=== PATIENT | female | born 1960 | race Caucasian/White ===

== ENCOUNTER → 2016-08-19 | Outpatient (CLI) | payer OTHER ==
--- NOTE | 2016-08-19 11:07 | MA ---
Screening Digital Mammogram With Tomosynthesis Clinical Indications: Routine screening. Technique: Standard digital cephalocaudal and tomosynthesis mediolateral oblique projections were ob tained. The digital images were processed by the [employer] computer aided detection system. Comparison: June 2015, June 2014, June 2013 and May 2012. Breast density: D; The breast tissue is extremely dense. There is diffuse prominent ductal pattern. T his may lower the sensitivity of mammography. Findings: CAD was reviewed. No suspicious findings are identified. Impression: Negative mammogram. BI-RADS 1. Recommendation: Routine screening is recommended in one year, as long as physical examination is chapis ign in this patient with moderately dense breast parenchyma. Considering the patient's extremely dens e breast parenchyma, she might consider using screening whole breast ultrasound as a complement to an nual screening mammography. [facility] will send a result letter to the patient. Negative mammography should not preclude additional workup of a clinically suspicious finding. The patient's information is entered into a reminder system with a target due date for her next mammo gram.
== END ==
LOC: FIMAGING 10:18
DX: Z12.31 Encounter for screening mammogram for malignant neoplasm of breast (principal)
CPT/HCPCS: G0202